=== PATIENT | male | born 1990 | race Caucasian/White ===

== ENCOUNTER 2016-12-23 19:03 | Emergency (ER) | payer OTHER ==
[~2016-12-23] VITALS: Ht 182.9 cm; Wt 59.0 kg
[2016-12-23 19:12] VITALS: BP 127/78
[2016-12-23] MEDS ORDERED: Metoclopramide 10mg/2ml Inj IVP ONE (19:15)
[2016-12-23 20:01] LABS: EOSINOPHILS % (AUTO) 1.3 % (0.0-3.0); LYMPHOCYTES % (AUTO) 25.9 % (20.0-45.0); MEAN CORPUSCULAR HEMOGLOBIN 35.4 PG (27.0-31.0); MEAN CORPUSCULAR HGB CONC 36.2 G/DL (32.0-36.0); MEAN CORPUSCULAR VOLUME 98 FL (80-99); MEAN PLATELET VOLUME 5.9 FL (6.5-10.1); MONOCYTES % (AUTO) 5.5 % (1.0-10.0); NEUTROPHILS % (AUTO) 66.3 % (45.0-75.0); PLATELET COUNT 200 K/UL (150-450); RED BLOOD COUNT 4.66 M/UL (4.70-6.10); RED CELL DISTRIBUTION WIDTH 10.3 % (11.6-14.8); WHITE BLOOD COUNT 7.5 K/UL (4.8-10.8)
[2016-12-23 20:06] LABS: ALANINE AMINOTRANSFERASE 38 U/L (3-41); ALBUMIN/GLOBULIN RATIO 2.1 (1.0-2.7); ANION GAP 13 (5-15); ASPARTATE AMINO TRANSFERASE 29 U/L (5-40); CALCIUM 8.4 mg/dL (8.6-10.2); CARBON DIOXIDE 27 mEQ/L (20-30); CHLORIDE 107 mEQ/L (98-107); CREATININE 0.8 mg/dL (0.7-1.2); GLOMERULAR FILTRATION RATE > 60 mL/min (>60); HEMOLYSIS 9; LIPASE 65 U/L (< 60); POTASSIUM 3.9 mEQ/L (3.4-4.9); SODIUM 147 mEQ/L (135-145)
[2016-12-23 20:13] LABS: ALCOHOL 450 mg/dL
--- NOTE | 2016-12-23 22:27 | Emergency Room Report ---
History of Present Illness General Chief Complaint: Alcohol Intoxication Source: Patient Present Illness HPI The patient is a 26-year-old male brought in by ambulance for alcohol intoxication. The patient's friend has accompanied him and call 911 due to intoxication. He states that the patient was drinking for leisure. he is unsure if the patient used any drugs and is unsure of how much he consumed. The patient is unable to provide any information at this time Allergies: Coded Allergies: No Known Allergies (Unverified , 12/23/16) Patient History Past Medical History: see triage record Pertinent Family History: none Reviewed Nursing Documentation: PMH: Agreed, PSxH: Agreed Nursing Documentation-PMH Hx Cardiac Problems: No Hx Hypertension: No Hx Pacemaker: No Hx Asthma: No Hx COPD: No Hx Diabetes: No Hx Cancer: No Hx Gastrointestinal Problems: No Hx Dialysis: No History Of Psychiatric Problem: Yes - anxiety, ptsd Hx Neurological Problems: No Hx Cerebrovascular Accident: No Hx Seizures: No Review of Systems All Other Systems: limited Physical Exam Vital Signs Date Time Temp Pulse Resp B/P Pulse Ox O2 Delivery O2 Flow Rate FiO2 12/23/16 18:56 98.1 78 16 130/80 98 Room Air Sp02 EP Interpretation: reviewed, normal General Appearance: no apparent distress, GCS 15, non-toxic, lethargic Head: normocephalic, atraumatic Eyes: bilateral eye PERRL, bilateral eye normal inspection ENT: hearing grossly normal, normal pharynx, no angioedema, normal voice Neck: full range of motion, supple/symm/no masses Respiratory: chest non-tender, lungs clear, normal breath sounds, speaking full sentences Cardiovascular #1: regular rate, rhythm, no edema Musculoskeletal: normal inspection, normal range of motion Neurologic: alert, responsive, sensory intact, other - slurred speech Skin: normal color, no rash, warm/dry, well hydrated Medical Decision Making PA Attestation Dr. Chris is my supervising physician. Patient management was discussed with my supervising physician Diagnostic Impression: Primary Impression: Acute alcoholic intoxication Qualified Codes: F10.920 - Alcohol use, unspecified with intoxication, uncomplicated ER Course The patient is a 26-year-old male brought in by ambulance for alcohol intoxication. DDx considered but not limited to: acute alcohol intoxication, hepatic encephalopathy, drug overdose, hypoglycemia, psychosis Physical exam: Vitals are within normal limits. No apparent distress. Patient is lethargic. Head is normocephalic atraumatic. Pupils are equally round and reactive to light The patient is arousable by touch or name. Lungs are clear to auscultation bilaterally. No abnormal tenderness. Abdomen is soft. Otherwise exam is unremarkable The patient is given time to rest in the emergency department. Friend at bedside. Blood alcohol significantly elevated at 450 IV fluids were started but patient pulled the line out. He is given time to rest in the ED. Subsequent visits show improvement of patient's alertness and orientation. The patient will be signed out to Dr. Chris and will be WA'ed when sober. Laboratory Tests Test 12/23/16 19:42 White Blood Count 7.5 K/UL (4.8-10.8) Red Blood Count 4.66 M/UL (4.70-6.10) L Hemoglobin 16.5 G/DL (14.2-18.0) Hematocrit 45.5 % (42.0-52.0) Mean Corpuscular Volume 98 FL (80-99) Mean Corpuscular Hemoglobin 35.4 PG (27.0-31.0) H Mean Corpuscular Hemoglobin Concent 36.2 G/DL (32.0-36.0) H Red Cell Distribution Width 10.3 % (11.6-14.8) L Platelet Count 200 K/UL (150-450) Mean Platelet Volume 5.9 FL (6.5-10.1) L Neutrophils (%) (Auto) 66.3 % (45.0-75.0) Lymphocytes (%) (Auto) 25.9 % (20.0-45.0) Monocytes (%) (Auto) 5.5 % (1.0-10.0) Eosinophils (%) (Auto) 1.3 % (0.0-3.0) Basophils (%) (Auto) 1.0 % (0.0-2.0) Sodium Level 147 mEQ/L (135-145) H Potassium Level 3.9 mEQ/L (3.4-4.9) Chloride Level 107 mEQ/L (98-107) Carbon Dioxide Level 27 mEQ/L (20-30) Anion Gap 13 (5-15) Blood Urea Nitrogen 6 mg/dL (7-23) L Creatinine 0.8 mg/dL (0.7-1.2) Estimate Glomerular Filtration Rate > 60 mL/min (>60) Glucose Level 105 mg/dL (74-106) Calcium Level 8.4 mg/dL (8.6-10.2) L Total Bilirubin 0.3 mg/dL (0.0-1.2) Aspartate Amino Transferase (AST) 29 U/L (5-40) Alanine Aminotransferase (ALT) 38 U/L (3-41) Alkaline Phosphatase 68 U/L (40-129) Total Protein 7.0 g/dL (6.6-8.7) Albumin 4.8 g/dL (3.5-5.2) Globulin 2.2 g/dL Albumin/Globulin Ratio 2.1 (1.0-2.7) Lipase 65 U/L (< 60) H Serum Alcohol 450 mg/dL Lab Results Impression CBC, CMP unremarkable. Mild elevation of lipase Last Vital Signs Date Time Temp Pulse Resp B/P Pulse Ox O2 Delivery O2 Flow Rate FiO2 12/23/16 19:12 98.0 75 15 127/78 98 Room Air Status: improved Disposition: HOME, SELF-CARE Condition: Stable Signed Out To: Dr. Chris Referrals: [facility],REFERRING (PCP) EVANGELINA CHAVES Dec 23, 2016 22:27
[2016-12-24 01:34] VITALS: BP 127/78
== END 2016-12-24 01:34 | disposition home or self-care (01) ==
LOC: EDBD 19:03 → EMR 19:35
DX: F10.920 Alcohol use, unspecified with intoxication, uncomplicated (principal); F41.9 Anxiety disorder, unspecified; F43.10 Post-traumatic stress disorder, unspecified
CPT/HCPCS: 36415; 80053; 80329; 83690; 85025; 96374; 96375; 99284; J2765

== ENCOUNTER 2017-03-13 08:50 | Emergency (ER) | payer MEDICAID, OTHER ==
[~2017-03-13] VITALS: Ht 188 cm; Wt 79.4 kg
[2017-03-13 09:00] VITALS: BP 120/72
--- NOTE | 2017-03-13 09:34 | Emergency Room Report ---
History of Present Illness General Chief Complaint: Pain Source: Patient, Medical Record Present Illness HPI The patient reports tripping on uneven pavement yesterday Falling forward Having pain now to the left wrist Pain is worse with movement of the wrist Describes it as 6/10 Denies any pain to the fingers he feels of the pain does move up the forearm but denies any pain at the elbow denies any head injury Patient is right-hand dominant Allergies: Coded Allergies: No Known Allergies (Unverified , 12/23/16) Patient History Past Medical History: see triage record Pertinent Family History: none Reviewed Nursing Documentation: PMH: Agreed, PSxH: Agreed Nursing Documentation-PMH Past Medical History: No History, Except For Hx Cardiac Problems: No Hx Hypertension: No Hx Pacemaker: No Hx Asthma: No Hx COPD: No Hx Diabetes: No Hx Cancer: No Hx Gastrointestinal Problems: No Hx Dialysis: No Hx Neurological Problems: No Hx Cerebrovascular Accident: No Hx Seizures: No Review of Systems All Other Systems: negative except mentioned in HPI Physical Exam Vital Signs Date Time Temp Pulse Resp B/P (MAP) Pulse Ox O2 Delivery O2 Flow Rate FiO2 03/13/17 08:57 98.1 92 18 120/72 100 Room Air Sp02 EP Interpretation: reviewed, normal General Appearance: well appearing, no apparent distress Head: normocephalic, atraumatic Eyes: bilateral eye PERRL, bilateral eye EOMI ENT: hearing grossly normal, normal pharynx Neck: full range of motion, supple Respiratory: lungs clear Cardiovascular #1: regular rate, rhythm Gastrointestinal: non tender, soft Musculoskeletal: swelling - Over the radial left wrist, patient is able to have flexion extension however with increased pain, sensory is intact Neurologic: alert, oriented x3 Skin: other - mild swelling over the left wrist Lymphatic: no adenopathy Procedures Splinting Splinting : Consent: Verbal Location: left wrist Pre-Made Type: velcro Splint: thumb spica Pre-Proc Neuro Vasc Exam: normal Post-Proc Neuro Vasc Exam: normal Patient Tolerated: Well Complications: None Medical Decision Making Diagnostic Impression: Primary Impression: Wrist fracture, left ER Course Given the patient's presentation imaging studies were obtained There is evidence of what appears to be a scaphoid fracture Patient was splinted as noted above I did have a discussion with the patient regarding the importance of orthopedic followup for this fracture given the competitions that can occur Given the patient's HMO status he will require referral from his primary physician At this time stable for close outpatient followup Other X-Ray Diagnostic Results Other X-Ray Diagnostic Results : X-Ray ordered: left wrist # of Views/Limited Vs Complete: 4 View Indication: Pain EP Interpretation: Yes Interpretation: no dislocation, no soft tissue swelling, other - Scaphoid fracture, no obvious foreign body Impression: Other - acute wrist fracture, scaphoid Electronically Signed by: Sachin Sloan DO Last Vital Signs Date Time Temp Pulse Resp B/P (MAP) Pulse Ox O2 Delivery O2 Flow Rate FiO2 03/13/17 09:00 98.1 89 18 120/72 100 Room Air Status: improved Disposition: HOME, SELF-CARE Condition: Improved Referrals: [facility]ERR[facility] (PCP) Additional Instructions: Patient is provided with the discharge instructions notified to follow up with primary doctor in the next 2-3 days otherwise return to the er with any worsening symptoms. Please note that this report is being documented using DRAGON technology. This can lead to erroneous entry secondary to incorrect interpretation by the dictating instrument. SACHIN SLOAN D.O. Mar 13, 2017 09:34
--- NOTE | 2017-03-13 10:19 | Diagnostic Imaging Report ---
Clinical Indication:TRAUMA Technique: 3 views of the left wrist Comparison: None Findings: Questionable subtle lucency seen in the scaphoid. No other acute evident fracture or dislocation. The joint spaces are preserved. Small bone island is seen in the capitate and scaphoid Impression: Questionable subtle lucency in the scaphoid bone. Nondisplaced scaphoid fracture not completely excludable. Correlate with clinical findings, consider followup radiographs as indicated This agrees with the preliminary interpretation provided by the emergency room physician
[2017-03-13 10:23] VITALS: BP 122/79
== END 2017-03-13 10:26 | disposition home or self-care (01) ==
LOC: EMR 09:08
DX: S62.102A Fracture of unspecified carpal bone, left wrist, initial encounter for closed fracture (principal); W01.0XXA Fall on same level from slipping, tripping and stumbling without subsequent striking against object, initial encounter; Y92.89 Other specified places as the place of occurrence of the external cause
CPT/HCPCS: 99283

== ENCOUNTER 2017-04-05 13:04 | Emergency (ER) | payer MEDICAID ==
[~2017-04-05] VITALS: Ht 188 cm; Wt 86.2 kg
[2017-04-05] MEDS ORDERED: IBUPROFEN600 MG ORAL (13:26)
--- NOTE | 2017-04-05 13:29 | Emergency Room Report ---
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 and feels that his mobility has also limited with the splint that was given Denies any other repeat falls or trauma Denies any open cuts or wounds Allergies: Coded Allergies: No Known Allergies (Unverified , 12/23/16) Patient History Past Medical History: see triage record Pertinent Family History: none Reviewed Nursing Documentation: PMH: Agreed, PSxH: Agreed Nursing Documentation-PMH Hx Cardiac Problems: No Hx Hypertension: No Hx Pacemaker: No Hx Asthma: No Hx COPD: No Hx Diabetes: No Hx Cancer: No Hx Gastrointestinal Problems: No Hx Dialysis: No Hx Neurological Problems: No Hx Cerebrovascular Accident: No Hx Seizures: No Review of Systems All Other Systems: negative except mentioned in HPI Physical Exam Vital Signs Date Time Temp Pulse Resp B/P (MAP) Pulse Ox O2 Delivery O2 Flow Rate FiO2 04/05/17 13:15 98.2 93 20 128/69 99 Room Air Sp02 EP Interpretation: reviewed, normal General Appearance: well appearing, no apparent distress Head: normocephalic, atraumatic Eyes: bilateral eye PERRL, bilateral eye EOMI ENT: normal pharynx Musculoskeletal: other - Patient has some limited full extension of the thumb, there is still some mild swelling noted at the base of the thumb, neurovascularly intact however the pulses distally Neurologic: alert, oriented x3 Skin: no rash Lymphatic: no adenopathy Procedures Splinting Splinting : Consent: Verbal Location: left hand Pre-Made Type: velcro Splint: thumb spica Pre-Proc Neuro Vasc Exam: normal Post-Proc Neuro Vasc Exam: normal Patient Tolerated: Well Complications: None Medical Decision Making Diagnostic Impression: Primary Impression: scaphoid fracture ER Course Patient presents reporting that he has been unable to see specialist Patient has capitated with O and unfortunately not able to obtain referral through [facility] Patient was provided with outpatient clinics Possibility of following up at [facility] or [facility] as an outpatient Unfortunately not much further intervention that can be taken to the ER and the patient is otherwise stable for followup Last Vital Signs Date Time Temp Pulse Resp B/P (MAP) Pulse Ox O2 Delivery O2 Flow Rate FiO2 04/05/17 13:15 98.2 93 20 128/69 99 Room Air Status: improved Disposition: HOME, SELF-CARE Condition: Stable Scripts Ibuprofen* (MOTRIN*) 600 Mg Tablet 600 MG ORAL Q8H Y for For Pain, #20 TAB 0 Refills Prov: HAWK SLOAN D.O. 04/05/17 Patient Instructions: Scaphoid Fracture, Wrist Additional Instructions: You have reported that unfortunately you have not been able to see a specialist regarding your fracture. The importance of followup was discussed on initial visit. There appears to be difficulty secondary to insurance considerations. He do have an HMO that requires providing appropriate followup for this. Unfortunately there is no further intervention plausible through to the emergency room. Other possibilities are, follow-through at [facility] or [facility] HAWK SLOAN D.O. Apr 05, 2017 13:29
[2017-04-05 13:30] VITALS: BP 128/69
== END 2017-04-05 14:22 | disposition home or self-care (01) ==
LOC: EMR 14:19
DX: S62.002A Unspecified fracture of navicular [scaphoid] bone of left wrist, initial encounter for closed fracture (principal); X58.XXXA Exposure to other specified factors, initial encounter; Y92.89 Other specified places as the place of occurrence of the external cause
CPT/HCPCS: 29125; 99283